=== PATIENT | female | born 1985 | race Two or more races ===

== ENCOUNTER 2019-10-03 06:31 | Inpatient (IN) ==
[~2019-10-03 06:31] MED LIST: ANCEF VIAL 1 GRAM ONE; LR 1000 ML IV 1,000 ML IV ONE; NS 100 ML IV 100 ML IV ONE
[2019-10-03] MEDS ORDERED: D5 1/2 NS 1000 ML 1,000 ML IV SCH (06:55)
[2019-10-03] MEDS ORDERED: ANCEF VIAL 1 GRAM IVP ONE (06:55)
[2019-10-03] MEDS ORDERED: D5 1/2 NS 1L W PITOCIN 20 UNITS/L 20 UNITS/1,000 ML BAG IV ONE (06:58)
[2019-10-03] MEDS ORDERED: DILAUDID INJ ONE (06:58)
[2019-10-03] MEDS ORDERED: XYLOCAINE 1 % (PLAIN) ONE ×2 (06:58→10:38)
[2019-10-03] MEDS ORDERED: AFLURIA II4 or FLUARIX II4 IM ONE (07:37)
[2019-10-03] MEDS ORDERED: LR 1000 ML IV 1,000 ML IV ONE (08:53)
[2019-10-03] MEDS ORDERED: BENADRYL INJ 50 MG VIAL IVP PRN (09:11)
[2019-10-03] MEDS ORDERED: REGLAN INJ 10 MG VIAL IVP PRN ×2 (09:11→09:17)
[2019-10-03] MEDS ORDERED: ZOFRAN INJ 4 MG VIAL IVP PRN ×2 (09:11→09:17)
[2019-10-03] MEDS ORDERED: PHENERGAN INJ 25 MG IM PRN (09:11)
[2019-10-03] MEDS ORDERED: DILAUDID INJ IVP PRN (09:11)
[2019-10-03] MEDS ORDERED: NARCAN INJ IVP PRN (09:17)
[2019-10-03] MEDS ORDERED: MYLICON TAB 80 MG CHEW PO PRN (09:17)
[2019-10-03] MEDS ORDERED: PERCOCET TAB 5/325 MG PO PRN (09:17)
[2019-10-03] MEDS ORDERED: TORADOL 30 MG VIAL IVP PRN (09:17)
[2019-10-03] MEDS ORDERED: BENADRYL INJ 50 MG VIAL ONE (10:00)
[2019-10-03] MEDS ORDERED: D5 1/2 NS 1000 ML 1,000 ML with PITOCIN 20 UNITS IV SCH ×2 (10:00)
[2019-10-03] MEDS ORDERED: ZOFRAN INJ 4 MG VIAL ONE ×2 (10:00→10:38)
[2019-10-03] MEDS: BENADRYL INJ 50 MG VIAL IVP PRN ×2 (10:06→14:19)
[2019-10-03] MEDS ORDERED: DIPRIVAN VIAL ONE (10:38)
[2019-10-03] MEDS ORDERED: PITOCIN ONE (10:38)
[2019-10-03] MEDS ORDERED: MARCAINE SPINAL ONE (10:38)
[2019-10-03] MEDS ORDERED: TORADOL 30 MG VIAL ONE (10:38)
[2019-10-03] MEDS ORDERED: ADACEL or BOOSTRIX TDaP VACCINE IM ONE (11:43)
[2019-10-03 16:25] LABS: HEMATOCRIT 35.6 % (36.0-47.0); HEMOGLOBIN 12.1 g/dL (12.0-16.0)
[2019-10-04] MEDS ORDERED: D5 1/2 NS 1000 ML 1,000 ML IV ONE (01:19)
[2019-10-04] MEDS ORDERED: PITOCIN ONE (01:22)
[2019-10-04] MEDS ORDERED: PITOCIN IVP ONE (01:25)
[2019-10-04] MEDS ORDERED: D5 1/2 NS 1000 ML 1,000 ML IV SCH (02:00)
[2019-10-04 05:50] LABS: HEMOGLOBIN 10.3 g/dL (12.0-16.0)
[2019-10-04] MEDS ORDERED: PERCOCET TAB 5/325 MG PO PRN (08:01)
[2019-10-04] MEDS: BACTRIM DS TAB PO SCH ×2 (10:19→20:28)
[2019-10-04] MEDS: MOTRIN TAB 800 MG PO PRN (10:19)
[2019-10-04] MEDS: PRENATAL PLUS PO SCH (10:20)
[2019-10-04] MEDS: COLACE CAP 100 MG PO SCH ×2 (10:21→20:29)
[2019-10-04] MEDS: BACTROBAN TOPICAL OINT TOP SCH ×2 (14:30→21:25)
[2019-10-04] MEDS: FERROUS GLUCONATE PO SCH (18:12)
[2019-10-05] MEDS: MOTRIN TAB 800 MG PO PRN (00:28)
[2019-10-05] MEDS: BACTROBAN TOPICAL OINT TOP SCH (05:18)
[2019-10-05] MEDS: FERROUS GLUCONATE PO SCH (06:00)
[2019-10-05] MEDS: PRENATAL PLUS PO SCH (09:24)
[2019-10-05] MEDS: BACTRIM DS TAB PO SCH (09:24)
[2019-10-05] MEDS: COLACE CAP 100 MG PO SCH (09:24)
[2019-10-05 10:06] VITALS: BP 101/69
== END 2019-10-05 12:50 | disposition home or self-care (01) | DRG 785 ==
LOC: EDBD → NUR 06:31 → LD 06:47 → MED/SURG 09:23
PROVIDERS: ADMIT Specialist; ATTEND Specialist
DX: Z3A.39 39 weeks gestation of pregnancy; Z30.2 Encounter for sterilization; O34.211 Maternal care for low transverse scar from previous cesarean delivery; Z37.0 Single live birth; Z23 Encounter for immunization; N85.8 Other specified noninflammatory disorders of uterus
CPT/HCPCS: 36415; 85014; 85018; 90674; 90686; 90715; A4216; A4222; S0197; J0690; J1170; J1200; J1885; J2405; J2590; J2704; J3490; J7050; J7120; S5010